=== PATIENT | female | born 1985 | race Caucasian/White ===

== ENCOUNTER 2020-10-05 17:40 | Emergency (ER) | payer OTHER ==
[~2020-10-05] VITALS: Ht 162.6 cm; Wt 81.7 kg
[2020-10-05 18:23] LABS: URINE BILIRUBIN NEGATIVE (Negative); URINE BLOOD NEGATIVE (Negative); URINE CLARITY CLEAR; URINE COLOR YELLOW; URINE GLUCOSE-RANDOM* NEGATIVE (Negative); URINE KETONES NEGATIVE (Negative); URINE LEUKOCYTES-REFLEX NEGATIVE (Negative); URINE NITRITE-REFLEX NEGATIVE (Negative); URINE PROTEIN (DIPSTICK) NEGATIVE (Negative); URINE SPECIFIC GRAVITY 1.025 (1.005-1.035); URINE UROBILINOGEN 0.2 E.U./dl (0.2-1.0)
[2020-10-05 19:56] LABS: HEMOGLOBIN 14.7 gm/dL (12.0-15.0); POLYS 62.7 % (36.0-66.0)
[2020-10-05 19:57] LABS: ABSOLUTE NEUTROPHILS 4.1 thou/uL (1.4-8.2); BASOPHILS 1.1 % (0.0-2.0); EOSINOPHILS 1.5 % (0.0-3.0); HEMATOCRIT 42.3 % (37.0-47.0); LYMPHOCYTES 29.1 % (24.0-44.0); MCH 32.8 pg (26.0-34.0); MCHC 34.8 g/dL (28.0-37.0); MCV 94.2 fL (80.0-100.0); MONOCYTES 5.6 % (1.0-8.0); PLATELET COUNT 287 thou/uL (150-400); RBC 4.49 mil/uL (4.20-5.00); RDW 13.1 % (10.5-14.5); WBC 6.5 thou/uL (4.0-11.0)
[2020-10-05 20:05] LABS: CALCIUM 8.8 mg/dL (8.5-10.1); POTASSIUM 3.6 mmol/L (3.5-5.1)
[2020-10-05 20:11] LABS: ALBUMIN 3.8 g/dL (3.4-5.0); TOTAL BILIRUBIN 0.7 mg/dL (0.2-1.0); TOTAL PROTEIN 7.2 g/dL (6.4-8.2)
[2020-10-05] MEDS ORDERED: PHENERGAN 25 MG25 M1 PO (21:20)
[2020-10-05] MEDS ORDERED: NORCO 10-325 T1 EACH PO (21:20)
[2020-10-05 21:55] VITALS: BP 141/97
== END 2020-10-05 22:33 | disposition home or self-care (01) ==
LOC: ER 17:40
PROVIDERS: Physician Assistant
DX: R10.30 Lower abdominal pain, unspecified (principal); R11.2 Nausea with vomiting, unspecified; Z90.710 Acquired absence of both cervix and uterus; Z90.49 Acquired absence of other specified parts of digestive tract; Z88.5 Allergy status to narcotic agent

== ENCOUNTER 2020-11-26 14:03 | Inpatient (IN) | payer OTHER ==
[~2020-11-26] VITALS: Ht 165.1 cm; Wt 88.9 kg
[~2020-11-26 14:03] MED LIST: NORCO 10-325 T1 EACH PO; PHENERGAN 25 MG25 M1 PO
[2020-11-26 14:13] VITALS: BP 138/96
[2020-11-26 15:45] LABS: URINE BILIRUBIN NEGATIVE (Negative); URINE BLOOD TRACE (Negative); URINE CLARITY CLEAR; URINE COLOR YELLOW; URINE GLUCOSE-RANDOM* NEGATIVE (Negative); URINE KETONES NEGATIVE (Negative); URINE LEUKOCYTES-REFLEX TRACE (Negative); URINE NITRITE-REFLEX NEGATIVE (Negative); URINE PROTEIN (DIPSTICK) NEGATIVE (Negative); URINE SPECIFIC GRAVITY <= 1.005 (1.005-1.035); URINE UROBILINOGEN 0.2 E.U./dl (0.2-1.0)
[2020-11-26 15:54] LABS: AMP/METHAMP Negative (Negative); BARBITURATES Negative (Negative); BENZODIAZEPINES POSITIVE (Negative); COCAINE Negative (Negative); METHADONE Negative (Negative); OPIATES Negative (Negative); PCP Negative (Negative)
--- NOTE | 2020-11-26 16:44 | EKG ---
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: AWA : 1985 Requested By: Skye Fontana Order Number: [id number] MD: Eduard Chicas Measurements Intervals [place] Rate: 144 P: 48 HI: 133 QRS: 88 QRSD: 120 T: -33 QT: 300 QTc: 465 Interpretive Statements Sinus tachycardia Nonspecific intraventricular conduction delay Nonspecific T abnormalities, diffuse leads Artifact in lead(s) I,III,aVR,aVL,V1,V2,V3,V4,V5,V6 No previous ECG available for comparison Electronically Signed On 11-26-2020 16:44:25 CDT by Eduard Chicas [email or web address] <ELECTRONICALLY SIGNED> By: Eduard Chicas MD, [facility] 11/26/20 1644 142 142 Eduard Chicas MD, [facility] /EPI
[2020-11-26 16:45] LABS: ABSOLUTE NEUTROPHILS 4.2 thou/uL (1.4-8.2); BASOPHILS 0.6 % (0.0-2.0); EOSINOPHILS 2.1 % (0.0-3.0); HEMATOCRIT 43.4 % (37.0-47.0); HEMOGLOBIN 14.8 gm/dL (12.0-15.0); LYMPHOCYTES 21.4 % (24.0-44.0); MCH 32.7 pg (26.0-34.0); MCHC 34.2 g/dL (28.0-37.0); MCV 95.5 fL (80.0-100.0); MONOCYTES 5.2 % (1.0-8.0); PLATELET COUNT 245 thou/uL (150-400); POLYS 70.7 % (36.0-66.0); RBC 4.54 mil/uL (4.20-5.00); RDW 14.3 % (10.5-14.5); WBC 5.9 thou/uL (4.0-11.0)
[2020-11-26 16:57] LABS: CALCIUM 8.5 mg/dL (8.5-10.1); CREATININE 0.9 mg/dL (0.6-1.0); POTASSIUM 3.7 mmol/L (3.5-5.1)
[2020-11-26 17:02] LABS: APTT 26.1 Seconds (24.5-32.8); INR 0.96; PROTIME 10.5 Seconds (10.5-12.1)
[2020-11-26 17:04] LABS: ALBUMIN 3.5 g/dL (3.4-5.0); TOTAL BILIRUBIN 0.7 mg/dL (0.2-1.0); TOTAL PROTEIN 7.2 g/dL (6.4-8.2)
[2020-11-26 18:31] VITALS: BP 135/93
[2020-11-26 20:07] VITALS: BP 120/76
[2020-11-26 20:51] VITALS: BP 138/98
[2020-11-27 05:04] LABS: ABSOLUTE NEUTROPHILS 4.1 thou/uL (1.4-8.2); BASOPHILS 0.5 % (0.0-2.0); EOSINOPHILS 2.8 % (0.0-3.0); HEMATOCRIT 40.5 % (37.0-47.0); HEMOGLOBIN 13.8 gm/dL (12.0-15.0); LYMPHOCYTES 22.7 % (24.0-44.0); MCH 32.8 pg (26.0-34.0); MCHC 34.2 g/dL (28.0-37.0); MCV 95.9 fL (80.0-100.0); MONOCYTES 4.9 % (1.0-8.0); PLATELET COUNT 197 thou/uL (150-400); POLYS 69.1 % (36.0-66.0); RBC 4.22 mil/uL (4.20-5.00); RDW 14.5 % (10.5-14.5)
[2020-11-27 05:22] VITALS: BP 108/69
[2020-11-27 05:48] LABS: CALCIUM 7.7 mg/dL (8.5-10.1); CREATININE 0.9 mg/dL (0.6-1.0); MAGNESIUM 1.7 mg/dL (1.8-2.4); POTASSIUM 3.8 mmol/L (3.5-5.1)
[2020-11-27 08:00] VITALS: BP 126/92
[2020-11-27] MEDS ORDERED: ULTRAM50 MG PO (15:36)
[2020-11-27] MEDS ORDERED: ACETAMINOPHEN325 M1 PO (15:36)
[2020-11-27] MEDS ORDERED: ZOFRAN ODT4 MG PO (15:36)
[2020-11-27] MEDS ORDERED: PROTONIX40 M2 PO (15:36)
[2020-11-27] MEDS ORDERED: AUGMENTIN 875-1 EACH PO (15:40)
[2020-11-27 15:43] VITALS: BP 126/92
== END 2020-11-27 16:54 | disposition home or self-care (01) | DRG 368 ==
LOC: ER 14:03 → EROBS 18:21 → 4W 20:47
PROVIDERS: Emergency Medicine; Nurse Practitioner; ADMIT Internal Medicine; ATTEND Internal Medicine
PROC: 0DB78ZX Excision of Stomach, Pylorus, Via Natural or Artificial Opening Endoscopic, Diagnostic (ICD-10-PCS; principal; 2020-11-27)
DX: K21.01 Gastro-esophageal reflux disease with esophagitis, with bleeding (principal); K29.71 Gastritis, unspecified, with bleeding; L03.115 Cellulitis of right lower limb; J45.909 Unspecified asthma, uncomplicated; E03.9 Hypothyroidism, unspecified; F32.9 Major depressive disorder, single episode, unspecified; F41.9 Anxiety disorder, unspecified; F12.90 Cannabis use, unspecified, uncomplicated; Z20.822 Contact with and (suspected) exposure to COVID-19; Z93.3 Colostomy status; Z90.49 Acquired absence of other specified parts of digestive tract; Z90.710 Acquired absence of both cervix and uterus; Z88.6 Allergy status to analgesic agent; Z87.11 Personal history of peptic ulcer disease; W57.XXXA Bitten or stung by nonvenomous insect and other nonvenomous arthropods, initial encounter; Y93.89 Activity, other specified; Y92.89 Other specified places as the place of occurrence of the external cause; Y99.8 Other external cause status
CPT/HCPCS: 10045; 70005

== ENCOUNTER 2021-02-03 01:28 | Emergency (ER) | payer OTHER ==
[~2021-02-03] VITALS: Ht 162.6 cm; Wt 77.1 kg
[~2021-02-03 01:28] MED LIST changes: +ACETAMINOPHEN325 M1 PO; +AUGMENTIN 875-1 EACH PO; +PROTONIX40 M2 PO; +ULTRAM50 MG PO; +ZOFRAN ODT4 MG PO
[2021-02-03 01:31] VITALS: BP 142/104
[2021-02-03] MEDS ORDERED: ALPRAZOLAM XR3 MG PO (01:37)
[2021-02-03] MEDS ORDERED: CELEXA 20 MG TA20 MG PO (01:37)
== END 2021-02-03 02:46 | disposition left against medical advice (07) ==
LOC: ER 01:28
DX: R10.13 Epigastric pain (principal); F41.9 Anxiety disorder, unspecified; F32.9 Major depressive disorder, single episode, unspecified; J45.909 Unspecified asthma, uncomplicated; E03.9 Hypothyroidism, unspecified; Z90.710 Acquired absence of both cervix and uterus; Z90.49 Acquired absence of other specified parts of digestive tract; Z79.899 Other long term (current) drug therapy; Z88.6 Allergy status to analgesic agent